=== PATIENT | female | born 1955 | race Caucasian/White ===

== ENCOUNTER → 2017-11-14 | Outpatient (CLI) | payer OTHER ==
[2017-11-14 12:03] LABS: APPEARANCE, URINE HAZY (CLEAR); BACTERIA, URINE AUTO NEGATIVE (NEGATIVE); BILIRUBIN, URINE AUTO NEGATIVE (NEGATIVE); BLOOD, URINE BLOOD NEGATIVE (NEGATIVE); COLOR, URINE YELLOW (YELLOW); GLUCOSE, URINE (UA) AUTO NEGATIVE (NEGATIVE); KETONE, URINE AUTO NEGATIVE (NEGATIVE); LEUKOCYTE ESTERASE, URINE AUTO TRACE (NEGATIVE); MUCUS, URINE SMALL (NEGATIVE); NITRITE, URINE AUTO NEGATIVE (NEGATIVE); PROTEIN, URINE AUTO NEGATIVE (NEGATIVE); RBC, URINE AUTO 2 /HPF (0-3); SPECIFIC GRAVITY URINE AUTO 1.015 (1.002-1.035); SQUAMOUS EPITHELIAL CELL UR AU 3 /HPF (0-6); UROBILINOGEN, URINE AUTO 0.2 mg/dL (0.0-2.0); WBC, URINE AUTO 4 /HPF (0-3)
[2017-11-14 12:05] LABS: HEMATOCRIT 40.3 % (36.0-47.0); HEMOGLOBIN 13.3 g/dl (12.0-16.0); MEAN CORPUSCULAR HEMOGLOBIN 28.1 pg (27.0-33.0); MEAN CORPUSCULAR VOLUME 85.2 fl (80.0-96.0); PLATELET COUNT, AUTOMATED 289 10^3/uL (150-450); RED BLOOD COUNT 4.73 10^6/uL (4.00-5.40); RED CELL DISTRIBUTION WIDTH 12.7 % (11.5-14.5); WHITE BLOOD COUNT 5.3 10^3/uL (4.0-10.0)
[2017-11-14 12:15] LABS: INR 1.05; PROTHROMBIN TIME 13.8 SECONDS (12.4-14.5)
[2017-11-14 12:38] LABS: ALBUMIN 4.1 GM/DL (3.2-5.2); ALBUMIN/GLOBULIN RATIO 1.03 (1.00-1.93); ALKALINE PHOSPHATASE 88 U/L (45-117); ALT/SGPT 19 U/L (12-78); ANION GAP 6 MEQ/L (8-16); AST/SGOT 15 U/L (7-37); BILIRUBIN,TOTAL 0.5 MG/DL (0.2-1.0); BLOOD UREA NITROGEN 18 MG/DL (7-18); CALCIUM LEVEL 9.7 MG/DL (8.8-10.2); CARBON DIOXIDE LEVEL 29 MEQ/L (21-32); CHLORIDE LEVEL 103 MEQ/L (98-107); CREATININE FOR GFR 0.79 MG/DL (0.55-1.02); GLOMERULAR FILTRATION RATE > 60.0 (>45); GLUCOSE, FASTING 94 MG/DL (80-110); SODIUM LEVEL 138 MEQ/L (136-145); TOTAL PROTEIN 8.1 GM/DL (6.4-8.2)
[2017-11-14 12:46] LABS: ERYTHROCYTE SEDIMENTATION RATE 14 mm/hr (0-30)
== END ==
LOC: M ADMPAT 10:22
DX: M17.11 Unilateral primary osteoarthritis, right knee (principal)
CPT/HCPCS: 71046

== ENCOUNTER 2017-12-29 07:17 | Inpatient (IN) | payer OTHER ==
[2017-12-29] MEDS: ACETAMINOPHEN 500 MG TAB PO (08:46)
[2017-12-29] MEDS: LR 1,000 ML IV ×4 (08:46→23:46)
[2017-12-29] MEDS ORDERED: fentaNYL 100 MCG/2 ML INJECTION (J3010) As Ordered ×2 (09:42→09:56)
[2017-12-29] MEDS ORDERED: MIDAZOLAM INJ 2 MG/2 ML VIAL (J2250) As Ordered ×2 (09:43→09:56)
[2017-12-29] MEDS: MIDAZOLAM INJ 2 MG/2 ML VIAL (J2250) IV (09:54)
[2017-12-29] MEDS: fentaNYL 100 MCG/2 ML INJECTION (J3010) IV (09:54)
[2017-12-29] MEDS: BUPIVACAINE HCL 0.25% 10 ML VIAL As Ordered (09:54)
[2017-12-29] MEDS ORDERED: LIDOCAINE 2% INJ 100 MG/5 ML SDV (FOR ANES.) As Ordered (09:57)
[2017-12-29] MEDS ORDERED: PROPOFOL 200 MG/20 ML VIAL As Ordered (09:57)
[2017-12-29] MEDS ORDERED: ePHEDrine INJ 50 MG/ML VIAL As Ordered (10:55)
[2017-12-29] MEDS: BUPIVACAINE LIPOSOME/PF 1.3% 20 ML VIAL (13.3MG/ML)(EXPAREL) As Ordered (11:05)
[2017-12-29] MEDS: ceFAZolin 1GM INJ (J0690 PER 500MG) As Ordered (11:05)
[2017-12-29] MEDS: EPINEPHrine INJ 1 MG/ML 1ML AMP As Ordered (11:06)
[2017-12-29] MEDS: TRANEXAMIC ACID 100 MG/ML 10ML VIAL As Ordered (11:06)
[2017-12-29] MEDS ORDERED: dexameTHASONE 10 MG/1 ML VIAL PRES.FREE (J1100) (11:40)
[2017-12-29] MEDS ORDERED: ROPIvacaine 0.5% 30 ML INJECTION (J2795 PER 1MG) (11:40)
[2017-12-29] MEDS ORDERED: MORPHINE 1MG/ML IN 0.9% NACL 100ML IV BAG As Ordered (12:10)
[2017-12-29] MEDS ORDERED: ONDANSETRON 4MG/2ML VIAL (J2405) As Ordered (12:27)
[2017-12-29] MEDS: ONDANSETRON 4MG/2ML VIAL (J2405) IV (12:30)
[2017-12-29] MEDS ORDERED: FLEET ENEMA PR (12:45)
[2017-12-29] MEDS ORDERED: EPIDURAL/PCA KEYS XX (13:00)
[2017-12-29] MEDS ORDERED: MORPHINE 1MG/ML IN 0.9% NACL 100ML IV BAG IV (13:00)
[2017-12-29] MEDS ORDERED: NALBUPHINE HCL 10 MG/ML AMP (J2300) IV (13:00)
[2017-12-29] MEDS ORDERED: ONDANSETRON 4MG/2ML VIAL (J2405) IV (13:00)
[2017-12-29] MEDS ORDERED: fentaNYL 100 MCG/2 ML INJECTION (J3010) IV (13:00)
[2017-12-29] MEDS ORDERED: diphenhydrAMINE INJ 50MG/ML VIAL (J1200) IV (13:00)
[2017-12-29] MEDS ORDERED: NALOXONE INJ 0.4 MG/1 ML VIAL (J2310) IV (13:00)
[2017-12-29] MEDS: LISINOPRIL 40 MG TAB PO (14:47)
[2017-12-29] MEDS: WARFARIN SOD 5 MG TAB PO (17:12)
[2017-12-30 07:00] LABS: HEMATOCRIT 34.9 % (36.0-47.0); HEMOGLOBIN 11.2 g/dl (12.0-16.0); MEAN CORPUSCULAR HEMOGLOBIN 28.1 pg (27.0-33.0); MEAN CORPUSCULAR HGB CONC 32.1 g/dl (32.0-36.5); MEAN CORPUSCULAR VOLUME 87.7 fl (80.0-96.0); PLATELET COUNT, AUTOMATED 274 10^3/uL (150-450); RED BLOOD COUNT 3.98 10^6/uL (4.00-5.40); RED CELL DISTRIBUTION WIDTH 13.1 % (11.5-14.5); WHITE BLOOD COUNT 11.2 10^3/uL (4.0-10.0)
[2017-12-30] MEDS ORDERED: ONDANSETRON 4 MG TAB (S0181) PO (07:00)
[2017-12-30 07:14] LABS: INR 1.16
[2017-12-30 07:21] LABS: ANION GAP 7 MEQ/L (8-16); BLOOD UREA NITROGEN 27 MG/DL (7-18); CALCIUM LEVEL 8.9 MG/DL (8.8-10.2); CARBON DIOXIDE LEVEL 27 MEQ/L (21-32); CHLORIDE LEVEL 107 MEQ/L (98-107); CREATININE FOR GFR 1.04 MG/DL (0.55-1.30); GLUCOSE, FASTING 117 MG/DL (70-100); POTASSIUM SERUM 4.9 MEQ/L (3.5-5.1); SODIUM LEVEL 141 MEQ/L (136-145)
[2017-12-30] MEDS: LISINOPRIL 40 MG TAB PO (09:00)
[2017-12-30] MEDS: SENOKOT S TAB PO ×2 (09:10→19:59)
[2017-12-30] MEDS: MIRALAX *UNIT DOSE* 17GM PACKET PO (09:10)
[2017-12-30] MEDS: MOM 30ML SUSPENSION UDC PO ×2 (09:10→19:59)
[2017-12-30] MEDS: PERCOCET 5MG/325MG TAB PO ×2 (12:35→20:00)
[2017-12-30] MEDS: WARFARIN SOD 5 MG TAB PO (16:29)
[2017-12-30] MEDS: ACETAMINOPHEN TAB 650MG DOSE (2X325MG) PO (22:42)
[2017-12-31] MEDS: PERCOCET 5MG/325MG TAB PO ×4 (00:41→14:14)
[2017-12-31 07:09] LABS: HEMATOCRIT 32.4 % (36.0-47.0); HEMOGLOBIN 10.4 g/dl (12.0-16.0); MEAN CORPUSCULAR HGB CONC 32.1 g/dl (32.0-36.5); MEAN CORPUSCULAR VOLUME 87.1 fl (80.0-96.0); PLATELET COUNT, AUTOMATED 264 10^3/uL (150-450); RED BLOOD COUNT 3.72 10^6/uL (4.00-5.40); RED CELL DISTRIBUTION WIDTH 13.2 % (11.5-14.5); WHITE BLOOD COUNT 10.6 10^3/uL (4.0-10.0)
[2017-12-31 07:22] LABS: INR 1.75
[2017-12-31 07:25] LABS: ANION GAP 4 MEQ/L (8-16); BLOOD UREA NITROGEN 30 MG/DL (7-18); CALCIUM LEVEL 8.5 MG/DL (8.8-10.2); CARBON DIOXIDE LEVEL 29 MEQ/L (21-32); CHLORIDE LEVEL 105 MEQ/L (98-107); CREATININE FOR GFR 0.74 MG/DL (0.55-1.30); GLOMERULAR FILTRATION RATE > 60.0 (>45); GLUCOSE, FASTING 112 MG/DL (70-100); POTASSIUM SERUM 4.5 MEQ/L (3.5-5.1); SODIUM LEVEL 138 MEQ/L (136-145)
[2017-12-31] MEDS: LISINOPRIL 40 MG TAB PO (09:08)
[2017-12-31] MEDS: MOM 30ML SUSPENSION UDC PO (09:08)
[2017-12-31] MEDS: MIRALAX *UNIT DOSE* 17GM PACKET PO (09:08)
[2017-12-31] MEDS: SENOKOT S TAB PO (09:08)
== END 2017-12-31 14:15 | disposition home health service (06) | DRG 302 ==
LOC: M OR 07:17 → M MS5PR 13:20
PROC: 0SRC0J9 Replacement of Right Knee Joint with Synthetic Substitute, Cemented, Open Approach (ICD-10-PCS; principal; 2017-12-29 10:00)
DX: M17.11 Unilateral primary osteoarthritis, right knee (principal); Z68.41 Body mass index [BMI] 40.0-44.9, adult; I10 Essential (primary) hypertension; E55.9 Vitamin D deficiency, unspecified; E66.9 Obesity, unspecified; F41.9 Anxiety disorder, unspecified; E78.5 Hyperlipidemia, unspecified; E16.2 Hypoglycemia, unspecified; I35.0 Nonrheumatic aortic (valve) stenosis

== ENCOUNTER → 2018-01-15 | Outpatient (REF) | payer OTHER ==
[2018-01-15 13:02] LABS: INR 1.46; PROTHROMBIN TIME 18.1 SECONDS (12.4-14.5)
== END ==
LOC: M LAB REF 12:44
DX: Z79.01 Long term (current) use of anticoagulants (principal)
CPT/HCPCS: 85610

== ENCOUNTER → 2018-04-08 | Day surgery (SDC) | payer OTHER ==
[~2018-04-08] MED LIST: LIDOCAINE 2% INJ 100 MG/5 ML SDV (FOR ANES.) As Ordered; NS 1,000 ML IV; PROPOFOL 200 MG/20 ML VIAL As Ordered
== END | disposition home or self-care (01) ==
LOC: M OPP 11:20
DX: Z12.11 Encounter for screening for malignant neoplasm of colon (principal); Z86.010 Personal history of colon polyps; I10 Essential (primary) hypertension; M17.0 Bilateral primary osteoarthritis of knee; F29 Unspecified psychosis not due to a substance or known physiological condition; F41.9 Anxiety disorder, unspecified; Z79.899 Other long term (current) drug therapy; Z78.0 Asymptomatic menopausal state; Z96.651 Presence of right artificial knee joint
CPT/HCPCS: 45378

== ENCOUNTER → 2018-12-22 | Outpatient (REF) | payer OTHER ==
[~2018-12-22] MED LIST changes: +CALC600T60 PO; +COUM2.5T17 PO; +FISH100049 PO; +FISH120012 PO; +HYDR-643 PO; -LIDOCAINE 2% INJ 100 MG/5 ML SDV (FOR ANES.) As Ordered; +LISI40TA PO; -NS 1,000 ML IV; +PERC5TAB12 PO; -PROPOFOL 200 MG/20 ML VIAL As Ordered; +TYLE325T5 PO; +VENL75TA2 PO; +VITA100067 PO; +[UNRECOGNIZED DRUG - CODE] PO
== END ==
LOC: M LAB REF 16:32
PROVIDERS: ATTEND Internal Medicine
DX: N76.0 Acute vaginitis (principal)

== ENCOUNTER → 2019-02-23 | Outpatient (CLI) | payer OTHER ==
[~2019-02-23] MED LIST changes: +ACET-897 PO; +D-101000 PO; +VITATAB26 PO
[2019-02-23 11:04] LABS: HEMATOCRIT 40.6 % (36.0-47.0); HEMOGLOBIN 13.1 g/dl (12.0-15.5); MEAN CORPUSCULAR HEMOGLOBIN 27.9 pg (27.0-33.0); MEAN CORPUSCULAR HGB CONC 32.3 g/dl (32.0-36.5); MEAN CORPUSCULAR VOLUME 86.4 fl (80.0-96.0); PLATELET COUNT, AUTOMATED 285 10^3/uL (150-450); WHITE BLOOD COUNT 5.1 10^3/uL (4.0-10.0)
[2019-02-23 11:18] LABS: INR 0.97
[2019-02-23 11:22] LABS: ALBUMIN 3.9 GM/DL (3.2-5.2); ALT/SGPT 20 U/L (12-78); BILIRUBIN,TOTAL 0.4 MG/DL (0.2-1.0); BLOOD UREA NITROGEN 21 MG/DL (7-18); CALCIUM LEVEL 9.2 MG/DL (8.8-10.2); CARBON DIOXIDE LEVEL 26 MEQ/L (21-32); CHLORIDE LEVEL 107 MEQ/L (98-107); CREATININE FOR GFR 0.83 MG/DL (0.55-1.30); GLOMERULAR FILTRATION RATE > 60.0 (>45); GLUCOSE, FASTING 94 MG/DL (70-100); POTASSIUM SERUM 4.5 MEQ/L (3.5-5.1); SODIUM LEVEL 140 MEQ/L (136-145); TOTAL PROTEIN 7.6 GM/DL (6.4-8.2)
[2019-02-23 11:49] LABS: ERYTHROCYTE SEDIMENTATION RATE 15 mm/hr (0-30)
--- NOTE | 2019-02-23 12:33 | REP ---
Chest two views HISTORY: Preop Comparison: 11/14/2017 Linear densities are present in the lingula consistent with scarring. The right lung is clear. The heart is normal in size. Calcified lymph nodes are present in the mediastinum. The pulmonary vasculature is normal in appearance. The bony structure is intact. IMPRESSION: There are linear densities in the lingula consistent with scarring. Electronically Signed by Clyde Sanchez MD 02/23/2019 12:24 P
--- NOTE | 2019-02-25 15:41 | ECGEPIP ---
Stationary ECG Study [facility] Test Date: 2019-02-23 Pat Name: BENITA STRINGER Department: Room: - Gender: F [employer]: : [id number] Requested By: Lyubov Peres @ [facility] Order Number: [id number] Reading MD: Harrison Mackenzie Measurements Intervals [place] Rate: 69 P: 43 AR: 194 QRS: -22 QRSD: 95 T: 18 QT: 386 QTc: 414 Interpretive Statements SINUS RHYTHM LEFT AXIS DEVIATION LOW QRS VOLTAGE IN PRECORDIAL LEADS Poor R wave progression. No prior ECG available for comparison at the time of interpretation. Electronically Signed On 02-25-2019 15:41:00 EDT by Harrison Mackenzie
== END ==
LOC: M LAB 10:24
PROVIDERS: ATTEND Orthopaedic Surgery
DX: M17.12 Unilateral primary osteoarthritis, left knee (principal)

== ENCOUNTER 2019-03-24 12:09 | Inpatient (IN) | payer OTHER ==
--- NOTE | 2019-03-04 16:27 | CR ---
DATE OF CONSULTATION: 03/02/2019 This is a preoperative consultation for Dr. Lyubov Soriano for left total knee arthroplasty (TKA) scheduled 03/24/2019 at [facility] ([facility]). Dear Dr. Soriano: Thank you for asking me to see Ms. Honey Ledesma in consultation prior to her left TKA scheduled 03/24/2019. As you know, Ms. Ledesma is a 63-year-old female with a past medical history of hypertension, hyperlipidemia, osteoarthritis (OA), degenerative joint disease (DJD), obesity, depression, who reports that she has been in her usual state of health, denying any fevers or chills, chest pain, or shortness of breath. After having had several stressors, patient reports she has learned to deal with her stress better and has even stopped her Wellbutrin. She has lost 7 pounds trying to adhere to portion control. She is very pleased with her right TKA done in November of 2017 and is eager to have her left TKA done. Patient does have anxiety. She was previously on venlafaxine and Wellbutrin, is off both, and is just using hydroxyzine for sleep. Patient has history of sinus allergies. They are controlled at this point, and she is not using saline or Flonase. Patient has hypertension. Denies chest pain or palpitations. She does use lisinopril daily and is compliant. Patient has hyperglycemia. Denies polyuria, polyphagia, polydipsia. REVIEW OF SYSTEMS: Otherwise, negative. Denying fevers or chills, chest pain or shortness of breath, nausea, vomiting, change in bowels. PAST MEDICAL HISTORY: 1. Hypertension. 2. OA, DJD per lumbosacral (LS) x-ray December 2013. Normal autoimmune serologies, but advanced OA, DJD bilateral knees, status post right TKA November of 2017 with good results. 3. Menopausal 2002. 4. G2, P2/ (C) section. 5. Colonic polyps with dysplasia. Last colonoscopy 04/08/2018 normal, recommending repeat in 5 years. 6. Hyperlipidemia. Refuses statin. 7. Vitamin D deficiency. 8. Herpes zoster 2013. 9. Obesity. 10. Hyperglycemia. 11. Anxiety. 12. Dysthymia. 13. Systolic murmur with echocardiogram 11/13/2017 showing aortic valve sclerosis, mild hypertensive heart disease. MEDICATIONS: - amoxicillin before dental procedures - calcium plus D twice a day - Flonase seasonally - hydroxyzine 10 mg 1-3 at bedtime - lisinopril 40 mg daily - saline spray as needed - Tylenol as needed - vitamin D3, 1000 international units daily DRUG ALLERGIES: None. SOCIAL HISTORY: Never smoked. Denies alcohol, except rare consumption of wine. FAMILY HISTORY: Father of an unknown cancer in his 70s. Mother of heart disease in her 70s. A sister had cervical cancer and thyroid disease. PHYSICAL EXAMINATION: Obese female in no acute distress. Vital signs: Are weight 231 with a body mass index (BMI) of 44. Oxygen saturation is 94%, blood pressure 142/78 with a heart rate of 91. HEENT exam: Head is normocephalic. Pupils equal, reactive to light. Extraocular movements intact. Conjunctivae are not injected. Sclerae anicteric. Vision grossly normal. Tympanic membranes normal. Tongue is midline. Posterior pharynx without inflammation. Neck: Is supple. No thyromegaly, jugular venous distention (JVD), or carotid bruits. Respiratory: Clear to auscultation. Resonant to percussion. Cardiovascular: 2-3 out of 6 systolic murmur. Abdomen: Obese, soft, nontender. Gynecologic: Deferred. Breast exam: Deferred. Extremities: No cyanosis, clubbing, or edema. She does have some OA changes of the distal interphalangeal (DIP) joints. Dermatologic: Multiple moles, skin tags, hobson angiomas. Neurologic: Alert and oriented. Cranial nerves II-XII intact. LABORATORY DATA: Chest x-ray shows no acute disease, just some scarring. EKG shows normal sinus rhythm, axis of -22, poor R-wave progression, but no atrial or ventricular hypertrophy, no pathologic Q waves, and no significant change compared to EKG 10/28/2017. Echocardiogram 11/13/2017 shows mild left ventricular hypertrophy (LVH) with grade 1 diastolic dysfunction, aortic sclerosis, consistent with mild hypertensive heart disease. Blood work 02/23/2019: Normal PT/PTT, med profile, liver panel, CBC, sedimentation rate. IMPRESSION: Ms. Honey Ledesma is a 63-year-old female with cardiovascular risk factors positive for hypertension, hyperlipidemia, hyperglycemia, obesity, age, who has no signs or symptoms indicative of cardiovascular ischemia and is felt to be at low risk for cardiovascular complications, which can be further minimized by the followin. Hypertension. Take lisinopril as usual evening prior to surgery. 2. Hyperlipidemia. Continue diet, exercise. She has refused statins. 3. Hyperglycemia. Diet, exercise, carbohydrate restriction. 4. Dysthymia. She is off all pharmacologic therapy and feels she is doing well. Her Patient Health Questionnaire-9 (PHQ-9) is reviewed and negative. 5. Anxiety. Controlled with hydroxyzine nightly. Consider using this perioperatively. She will take it the evening prior to surgery. 6. Osteoarthritis. She is not presently on any nonsteroidal anti-inflammatory drug (NSAID). She used Tylenol as needed. 7. Vitamin D deficiency. She will hold all vitamins morning of surgery. 8. Sinus allergies. Have improved. Should get both Flonase and saline initiated to keep her sinus allergies at bay prior to her surgical intervention. Thank you very much for this consultation. Please call with questions or concerns.
--- NOTE | 2019-03-16 15:33 | HPE ---
DATE OF PLANNED ADMISSION: 03/24/2019 ATTENDING PHYSICIAN: Dr. Ja Soriano CHIEF COMPLAINT: Left knee pain and stiffness. HISTORY: This is a pleasant 63-year-old female patient with progressively worsening left knee pain and stiffness that has failed to improve with conservative management. She has elected for left total knee arthroplasty by Dr. Soriano for her continued symptoms. ALLERGIES: None. CURRENT MEDICATIONS - Calcium with vitamin D - Flonase - hydroxyzine 10 mg one to three tablets by mouth (p.o.) at bedtime - lisinopril 40 mg daily - Tylenol as needed (p.r.n.) - vitamin D3 1000 units daily PAST MEDICAL HISTORY Hypertension, osteoarthritis, degenerative disk disease in the lumbar spine, hyperlipidemia, vitamin D deficiency, hyperglycemia, anxiety, dysthymia, systolic murmur with aortic valve sclerosis. PAST SURGICAL HISTORY section, right knee total arthroplasty. FAMILY HISTORY Father hypertension, heart disease. Mother hypertension. SOCIAL HISTORY Patient is a nonsmoker. Denies alcohol use. REVIEW OF SYSTEMS Denies fever, chills, chest pain, shortness breath, nausea, vomiting, diarrhea, recent upper respiratory or urinary tract infections. She does report pain with weightbearing in the left knee. PHYSICAL EXAMINATION Height 60 inches, weight 229 pounds, temperature 97.4, blood pressure 128/74, pulse 78, respirations 10. She is normocephalic, atraumatic, in no apparent distress. Neck is supple and nontender with no lymphadenopathy or JVD. S1, S2 are auscultated with regular rate and rhythm. Chest was clear to auscultation bilaterally with no wheezes, rales, rhonchi. Abdomen: Soft, nontender. The left lower extremity shows intact overlying skin, is well perfused. She has some tenderness over the medial aspect and intact range of motion with some pain at the extremes of range. EKG shows normal sinus rhythm, poor R-wave progression. No significant change compared to EKG on 10/28/2017. Echocardiogram on 11/13/2017 shows mild left ventricular hypertrophy with grade 1 diastolic dysfunction, aortic sclerosis. Chest x-ray shows linear densities in the lingula consistent with scarring. This was compared to study from 11/14/2017 LABS: White count 5.1, red count 4.7, hemoglobin 13.1, hematocrit 40.6, ESR 15, BUN 21, creatinine 0.83, PT 13, INR 0.97. PREOPERATIVE MEDICAL OPTIMIZATION: By Dr. Valentin was reviewed today on chart. IMPRESSION Symptomatic degenerative left knee osteoarthritis. PLAN Consented for left knee total arthroplasty with Dr. Soriano.
[~2019-03-24] VITALS: Ht 152.4 cm; Wt 101.7 kg
[~2019-03-24 12:09] MED LIST changes: +ACETAMINOPHEN 500 MG TAB PO ONE; +LR 1,000 ML IV ONE
[2019-03-24] MEDS ORDERED: LIDOCAINE 2% INJ 100 MG/5 ML SDV (FOR ANES.) As Ordered ONE (12:11)
[2019-03-24] MEDS ORDERED: PROPOFOL 200 MG/20 ML VIAL As Ordered ONE ×3 (12:11→15:22)
[2019-03-24] MEDS ORDERED: fentaNYL 100 MCG/2 ML INJECTION (J3010) As Ordered ONE ×2 (12:11→12:56)
[2019-03-24] MEDS ORDERED: MIDAZOLAM INJ 2 MG/2 ML VIAL (J2250) As Ordered ONE ×2 (12:11→12:56)
[2019-03-24] MEDS: MIDAZOLAM INJ 2 MG/2 ML VIAL (J2250) IV PRN ×2 (13:17→13:21)
[2019-03-24] MEDS ORDERED: BUPIVACAINE/DEXTROSE 0.75% 2 ML AMP As Ordered ONE (13:18)
[2019-03-24] MEDS ORDERED: dexameTHASONE 4 MG/ML 1ML VIAL (J1100) As Ordered ONE (13:23)
[2019-03-24] MEDS ORDERED: ONDANSETRON 4MG/2ML VIAL (J2405) As Ordered ONE (13:23)
[2019-03-24] MEDS ORDERED: TRANEXAMIC ACID 100 MG/ML 10ML VIAL As Ordered ONE (13:27)
[2019-03-24] MEDS ORDERED: BUPIVACAINE HCL 0.25% 10 ML VIAL As Ordered ONE (13:27)
[2019-03-24] MEDS ORDERED: BUPIVACAINE LIPOSOME/PF 1.3% 20ML VIAL (13.3MG/ML)(EXPAREL)(C9290 PER1MG) As Ordered ONE (13:28)
[2019-03-24] MEDS ORDERED: ceFAZolin 1GM INJ (J0690 PER 500MG) As Ordered ONE (13:28)
[2019-03-24] MEDS ORDERED: EPINEPHrine INJ 1 MG/ML 1ML AMP As Ordered ONE (13:28)
[2019-03-24] MEDS ORDERED: MIDAZOLAM INJ 2 MG/2 ML VIAL (J2250) IV ONE (13:45)
[2019-03-24] MEDS ORDERED: fentaNYL 100 MCG/2 ML INJECTION (J3010) IV ONE (14:00)
[2019-03-24] MEDS ORDERED: fentaNYL 100 MCG/2 ML INJECTION (J3010) IV PRN ×2 (14:00→16:15)
[2019-03-24] MEDS ORDERED: ePHEDrine SULFATE 25 MG/5 ML(5MG/ML) SYRINGE As Ordered ONE ×2 (14:25→15:03)
[2019-03-24] MEDS ORDERED: PHENYLephrine HCL 500 MCG/5 ML (100MCG/ML) SYRINGE (J2370) As Ordered ONE ×2 (14:25→14:59)
[2019-03-24] MEDS ORDERED: dexameTHASONE 10 MG/1 ML VIAL PRES.FREE (J1100) ONE (14:55)
[2019-03-24] MEDS ORDERED: EPINEPHrine INJ 1 MG/ML 1ML AMP ONE (14:55)
[2019-03-24] MEDS ORDERED: ROPIvacaine 0.5% 30 ML INJECTION (J2795 PER 1MG) ONE (14:55)
[2019-03-24] MEDS ORDERED: FLEET ENEMA PR PRN (16:15)
[2019-03-24] MEDS ORDERED: MEPERIDINE INJ 25 MG/ML VIAL (J2175) IV PRN (16:15)
[2019-03-24] MEDS ORDERED: PERCOCET 5MG/325MG TAB PO PRN (16:15)
[2019-03-24] MEDS ORDERED: ACETAMINOPHEN TAB 650MG DOSE (2X325MG) PO PRN (16:15)
[2019-03-24] MEDS: LR 1,000 ML IV SCH (16:15)
[2019-03-24] MEDS ORDERED: LR 1,000 ML IV SCH (16:15)
[2019-03-24] MEDS ORDERED: METOCLOPRAMIDE INJ 10MG/2ML VIAL (J2765) IV PRN (16:15)
--- NOTE | 2019-03-24 16:25 | REP ---
AP LATERAL LEFT KNEE, TWO VIEWS: HISTORY: Postoperative. The patient is status post left total knee replacement. There is no acute fracture or dislocation. Subcutaneous air and surgical brianna are present in the overlying soft tissue. IMPRESSION: The patient is status post left total knee replacement. There is anatomic alignment. Electronically Signed by Clyde Sanchez MD 03/24/2019 04:34 P
[2019-03-24] MEDS ORDERED: HYDROMORPHONE HCL 0.5 MG/ 0.5 ML SYRINGE (J1170 PER 1) IV PRN ×2 (16:30)
[2019-03-24] MEDS: ONDANSETRON 4MG/2ML VIAL (J2405) IV PRN (16:32)
--- NOTE | 2019-03-24 16:54 | RO ---
DATE OF PROCEDURE: 03/24/2019 PREPROCEDURE DIAGNOSIS: Left knee degenerative arthritis. POSTPROCEDURE DIAGNOSIS: Left knee degenerative arthritis. OPERATIVE PROCEDURE: Left total knee arthroplasty using a size 4 femoral component, cruciate retaining Attune knee with a size 4 tibial tray and a 7 mm rotating platform polyethylene insert and a 35 mm polyethylene button. All components were cemented. Prosthesis made by [employer]. SURGEON: Lyubov Soriano MD SHANK ARCHER: Tamara Shea ANESTHESIA: Left femoral nerve block with a spinal. ESTIMATED BLOOD LOSS: 20 mL SPECIMENS: Joint surface. COMPLICATIONS: None. TOURNIQUET TIME: 60 minutes. DESCRIPTION OF PROCEDURE: Antibiotics were given intravenously preoperatively and a successful left femoral nerve block and then a spinal anesthetic was induced. Tourniquet was placed in the left upper thigh and not inflated. The left lower extremity was carefully prepped and draped in the usual sterile fashion, elevated and after an appropriate time out, the tourniquet was inflated. A longitudinal incision was made for a medial parapatellar approach to the knee. Bovie cautery was used to coagulate the crossing vessels. Subperiosteal dissection of the proximal, medial and lateral tibia plateaus performed and then we everted the patella and flexed the knee, and debrided the anterior cruciate ligament (ACL). Placed a drill down the center of the femoral canal for the intramedullary fito with a distal femoral cutting jig set at 5 degrees valgus cut for a left knee at 9 mm resection level. The block was pinned into position and then the distal femoral cut performed. AP sizing jig measured for a size 4 femoral component. 3 degrees of external rotation was dialed in, the pins were placed and the four-in-one block applied and the anterior-posterior chamfer cuts performed. We then exposed the proximal tibia, used the extramedullary alignment jig, estimated being parallel to the mechanical axis of the tibia referencing off the medial tibial condyle and set it at 4 mm. Block was pinned into position, secondary check with extramedullary fito confirmed that we appeared to be parallel to the mechanical axis. Proximal tibial osteotomy thus performed. Laminar candle molder placed laterally and we performed a completion medial meniscectomy with debridement of the posteromedial osteophytes. Placed laminar candle molder medially and performed a completion lateral meniscectomy. Debrided posterolateral osteophytes. Spacer block fit best at 7 mm with good symmetry in flexion, extension, varus, valgus stress testing. We then exposed the proximal tibia, sized for a #4 tibial tray, which was then pinned into position followed by the reamer and broach. Then the trial was placed and the femoral component was placed. We did place the femoral jig for the notchplasty initially. We then brought the knee to extension, everted the patella, performed a patellar osteotomy, drilled the lug holes after sizing for a 35 mm button. The trial was placed and patellofemoral tracking was anatomic. We drilled the lug holes for the femur then removed all the trial components. Copiously pulsatile lavage irrigated out the knee joint and then injected Exparel in the subperiosteal tissues of the distal femur and the proximal tibia, and then as Tamara Shea mixed the cement on the back table as I prepared the bony surfaces for cementing with a copious amount of pulsatile lavage irrigant solution. Ms Tamara Shea was also critical to the success of this difficult surgery by helping to manipulate the knee, help with appropriate soft tissue retraction in this obese leg and helped with mixing the cement, closing the wound amongst many other tasks to allow me to perform the operation smoothly, efficiently and safely. We then dried all the exposed bone and cemented the tibial tray, removing excess cement, then placed the polyethylene and then cemented the femoral component, removing excess cement, brought the knee into extension, cemented the patellar button, held it with a clamp with the knee in extension until the cement hardened. Copiously pulsatile lavage irrigated out the knee joint as we were waiting for the cement to harden. I made sure that the small amount of cement that came out of the femoral hole was removed to prevent extension block. We then placed tranexamic acid in the knee, closed the arthrotomy at the apex with two #1 PDS sutures, the medial parapatellar areas was closed with #1 PDS suture, then a running double-armed #1 Stratafix used to close the capsule and then the tourniquet was released. Then we irrigated again and closed the deep subdermal tissues with interrupted #2-0 PDS sutures and the skin was closed with brianna, covered by an Optifoam dry sterile bulky dressing. She was then transferred to the recovery room in stable condition. There were no intraoperative complications.
[2019-03-24 17:20] VITALS: BP 129/67
--- NOTE | 2019-03-24 17:55 | CR.PDOC ---
General Date of Consultation: March 24, 2019 Consultation REASON FOR CONSULTATION/CHIEF COMPLAINT: Management of Medical comorbidities HISTORY OF PRESENT ILLNESS: This 63-year-old female patient with progressively worsening left knee pain and stiffness that has failed to improve with conservative management admitted for elective left total knee arthroplasty by Dr. Soriano for advanced osteoarthritis. hospitalist service has been consulted for management of her medical comorbidities. ALLERGIES: Please see below. HOME MEDICATIONS: Please see below. PAST MEDICAL HISTORY: 1. Hypertension 2. OA, DJD per lumbosacral (LS) x-ray December 2013. Normal autoimmune serologies, but advanced OA, DJD bilateral knees, status post right TKA November of 2017 with good results. 3. Colonic polyps with dysplasia. 4. Hyperlipidemia. Refuses statin. 5. Vitamin D deficiency. 6. Herpes zoster 2013. 9. Obesity. 7. Hyperglycemia. 8. Anxiety. 9. Dysthymia. 10. Systolic murmur with echocardiogram 11/13/2017 showing aortic valve sclerosis, mild hypertensive heart disease. PAST SURGICAL HISTORY: 1. Right Total Knee arthroplasty 2. Cesarian section FAMILY HISTORY: Never smoked. Denies alcohol, except rare consumption of wine. FAMILY HISTORY: Father of an unknown cancer in his 70s. Mother of heart disease in her 70s. A sister had cervical cancer and thyroid disease. SOCIAL HISTORY: Never smoked. Denies alcohol, except rare consumption of wine. REVIEW OF SYSTEMS: CONSTITUTIONAL: No fever or chills CARDIOVASCULAR: No chest pain or palpitation or orthopnea or PND or sob RESPIRATORY: No cough or phlegm or SOB GASTROINTESTINAL: No nausea vomiting or diarrhea SKIN: No rashes. NEUROLOGICAL: No weakness, seizure or confusion HEMATOLOGIC/LYMPHATIC: No excessive bleeding. PHYSICAL EXAMINATION: VITAL SIGNS: Please see below. GENERAL APPEARANCE: Awake alert cooperative, lying in bed in no acute distress HEENT: Normocephalic atraumatic anicteric eyes moist mucous membranes RESPIRATORY: Clear to auscultation CARDIOVASCULAR: s1 s2 regualr, no rub, murmur or gallop. ABDOMEN: Soft nontender normal bowel sounds EXTREMITIES: No edema LABORATORY DATA: Please see below. ASSESSMENT/PLAN: This 63-year-old female patient with progressively worsening left knee pain and stiffness that has failed to improve with conservative management admitted for elective left total knee arthroplasty by Dr. Soriano for advanced osteoarthritis. S/p Left Total knee arthroplasty elective procedure no issues during surgery pain control and dvt prophylaxis as per ortho Hypertension will hold lisinopril for now if needed will give amlodipine tonight. Morbid Obesity complicating care. Dysthymia and anxiety not on any medications now. DVT prophylaxis: Xarelto Vital Signs/I&O Vital Signs Date Time Temp Pulse Resp B/P (MAP) Pulse Ox O2 Delivery O2 Flow Rate FiO2 03/24/19 15:51 98.1 77 16 95/48 (91) 94 2 Allergies Coded Allergies: No Known Allergies (Unverified , 04/02/18) Home Medications Scheduled Acetaminophen (Tylenol Extra Strength) 500 Mg Tablet, 1,000 MG PO QHS, (Reported) Calcium Carbonate (Calcium) 600 Mg Tab, 600 MG PO DAILY, (Reported) with minerals Cholecalciferol (Vitamin D3) (Vitamin D3) 1,000 Unit Capsule, 1,000 UNIT PO DAILY, (Reported) Hydroxyzine HCl (Hydroxyzine HCl) 10 Mg Tab, 10 MG PO QHS, (Reported) Lisinopril (Lisinopril) 40 Mg Tab, 40 MG PO QHS, (Reported) HAYLEE NIX MD March 24, 2019 16:20
[2019-03-24 18:00] VITALS: BP_SYST 132; BP_SYST 142; BP_DIAS 71; BP_DIAS 81
[2019-03-24 20:00] VITALS: BP 149/77
[2019-03-24 20:20] VITALS: BP 156/88
[2019-03-24 21:00] VITALS: BP 137/69
[2019-03-24] MEDS ORDERED: amLODIPine 10 MG TAB PO SCH (21:00)
[2019-03-24 22:00] VITALS: BP 141/73
[2019-03-25 02:00] VITALS: BP 131/75
[2019-03-25] MEDS: LR 1,000 ML IV SCH (04:14)
[2019-03-25 06:00] VITALS: BP 159/80
[2019-03-25] MEDS ORDERED: PERCOCET 5MG/325MG TAB PO PRN ×2 (06:15)
[2019-03-25 06:27] LABS: HEMATOCRIT 33.9 % (36.0-47.0); MEAN CORPUSCULAR HEMOGLOBIN 27.8 pg (27.0-33.0); MEAN CORPUSCULAR HGB CONC 32.4 g/dl (32.0-36.5); MEAN CORPUSCULAR VOLUME 85.6 fl (80.0-96.0); PLATELET COUNT, AUTOMATED 258 10^3/uL (150-450); RED BLOOD COUNT 3.96 10^6/uL (4.00-5.40); WHITE BLOOD COUNT 12.9 10^3/uL (4.0-10.0)
[2019-03-25 06:52] LABS: BLOOD UREA NITROGEN 19 MG/DL (7-18); CALCIUM LEVEL 8.5 MG/DL (8.8-10.2); CARBON DIOXIDE LEVEL 25 MEQ/L (21-32); CHLORIDE LEVEL 108 MEQ/L (98-107); CREATININE FOR GFR 0.86 MG/DL (0.55-1.30); GLOMERULAR FILTRATION RATE > 60.0 (>45); GLUCOSE, FASTING 138 MG/DL (70-100); POTASSIUM SERUM 4.5 MEQ/L (3.5-5.1); SODIUM LEVEL 139 MEQ/L (136-145)
[2019-03-25] MEDS ORDERED: XARE10TA PO (07:07)
[2019-03-25] MEDS ORDERED: PERC5TAB12 PO (07:07)
--- NOTE | 2019-03-25 07:49 | IPNPDOC ---
Text Note Date of Service The patient was seen on 03/25/19. NOTE Subjective: No complaints this morning. Had a good night , has been out of bed. planned for dc today by orthopedics. PHYSICAL EXAMINATION: VITAL SIGNS: Please see below. GENERAL APPEARANCE: Awake alert cooperative, lying in bed in no acute distress HEENT: Normocephalic atraumatic anicteric eyes moist mucous membranes RESPIRATORY: Clear to auscultation CARDIOVASCULAR: s1 s2 regular, no rub, murmur or gallop. ABDOMEN: Soft nontender normal bowel sounds EXTREMITIES: No edema LABORATORY DATA: Please see below. ASSESSMENT/PLAN: This 63-year-old female patient with progressively worsening left knee pain and stiffness that has failed to improve with conservative management admitted for elective left total knee arthroplasty by Dr. Soriano for advanced osteoarthritis. S/p Left Total knee arthroplasty for advanced osteoarthritis elective procedure no issues during surgery pain control and dvt prophylaxis as per ortho Hypertension continue lisinopril Morbid Obesity complicating care. Dysthymia and anxiety not on any medications now. DVT prophylaxis: Xarelto VS,Fishbone, I+O VS, Fishbone, I+O Laboratory Tests 03/25/19 05:40 Red Blood Count 3.96 L, Mean Corpuscular Volume 85.6, Mean Corpuscular Hemoglobin 27.8, Mean Corpuscular Hemoglobin Concent 32.4, Red Cell Distribution Width 13.0, Calcium Level 8.5 L Vital Signs Date Time Temp Pulse Resp B/P (MAP) Pulse Ox O2 Delivery O2 Flow Rate FiO2 03/25/19 06:00 97.1 86 19 159/80 (106) 95 03/24/19 18:00 2.0 I&O- Last 24 Hours up to 6 AM 03/25/19 06:00 Intake Total 3310 ml Output Total 975 ml Balance 2335 ml HAYLEE NIX MD March 25, 2019 07:49
[2019-03-25] MEDS ORDERED: MOM 30ML SUSPENSION UDC PO SCH (09:00)
[2019-03-25] MEDS ORDERED: MIRALAX *UNIT DOSE* 17GM PACKET PO SCH (09:00)
[2019-03-25 10:00] VITALS: BP 162/75
[2019-03-25] MEDS ORDERED: RIVAROXABAN 10 MG TAB (XARELTO) PO SCH (18:00)
--- NOTE | 2019-03-26 14:43 | DSES ---
DATE OF ADMISSION: 03/24/2019 DATE OF DISCHARGE: 03/25/2019 DISCHARGE DIAGNOSIS: Left knee arthritis status post left total knee arthroplasty. HISTORY: This is a 63-year-old female with progressively worsening left knee pain and stiffness. She had failed to improve with conservative treatment. She elected for surgery for her continued symptoms. PROCEDURE PERFORMED: Left total knee arthroplasty. HOSPITAL COURSE: The patient was admitted on the day of surgery and underwent left total knee arthroplasty and it was without complications. Her hospital course was without complications. She was up with physical therapy per their protocol. Her pain was controlled. Upon discharge, the patient was doing well. She was weightbearing as tolerated to her left lower extremity, using her walker. She is going to resume preoperative medications and diet. She is going to use oral medications for pain control. She will use Xarelto for 2 weeks and BRYAN stockings for 30 days postoperatively for deep vein thrombosis (DVT) prophylaxis. Additionally, she will followup in the office in 2 weeks for wound check and staple removal. Please refer to the medical record for further detail.
== END 2019-03-25 12:00 | disposition home or self-care (01) | DRG 302 ==
LOC: M OR 12:09 → M MS5PR 17:00
PROVIDERS: ADMIT Orthopaedic Surgery; ATTEND Orthopaedic Surgery
PROC: 0SRD0J9 Replacement of Left Knee Joint with Synthetic Substitute, Cemented, Open Approach (ICD-10-PCS; principal; 2019-03-24 13:45)
DX: M17.12 Unilateral primary osteoarthritis, left knee (principal); Z68.41 Body mass index [BMI] 40.0-44.9, adult; I10 Essential (primary) hypertension; E66.01 Morbid (severe) obesity due to excess calories; Z79.899 Other long term (current) drug therapy; E78.5 Hyperlipidemia, unspecified; E55.9 Vitamin D deficiency, unspecified; F41.9 Anxiety disorder, unspecified; I35.0 Nonrheumatic aortic (valve) stenosis; Z96.651 Presence of right artificial knee joint

== ENCOUNTER → 2022-12-10 | Outpatient (CLI) | payer MEDICARE, OTHER, SELFPAY ==
[~2022-12-10] MED LIST changes: -ACETAMINOPHEN 500 MG TAB PO ONE; -LISI40TA PO; +LISI40TA4 PO; -LR 1,000 ML IV ONE; +XARE10TA PO
== END ==
LOC: M WHC 09:04
PROVIDERS: ATTEND Internal Medicine
DX: Z12.31 Encounter for screening mammogram for malignant neoplasm of breast (principal); Z13.820 Encounter for screening for osteoporosis; M85.851 Other specified disorders of bone density and structure, right thigh; M81.0 Age-related osteoporosis without current pathological fracture

== ENCOUNTER 2023-07-21 09:03 | Day surgery (SDC) | payer MEDICARE ==
[~2023-07-21] VITALS: Ht 152.4 cm; Wt 104.3 kg
[~2023-07-21 09:03] MED LIST changes: +AMLO5CAP53 PO; +NS 1,000 ML IV ONE; +THERTAB52 PO; +VITA100093 PO
[2023-07-21] MEDS ORDERED: propofoL 200 MG/20 ML VIAL As Ordered ONE ×2 (11:23→11:30)
[2023-07-21 11:41] VITALS: TEMP 97.9
[2023-07-21 11:57] VITALS: BP 129/68; O2SAT 100
== END 2023-07-21 12:12 | disposition home or self-care (01) ==
LOC: M OPP 09:03
PROVIDERS: ATTEND Internal Medicine Gastroenterology
DX: K57.30 Diverticulosis of large intestine without perforation or abscess without bleeding (principal); K64.0 First degree hemorrhoids; Z86.010 Personal history of colon polyps

== ENCOUNTER → 2025-01-28 | Outpatient (CLI) | payer MEDICARE ==
[~2025-01-28] MED LIST changes: -NS 1,000 ML IV ONE
== END ==
LOC: M WHC 08:09
PROVIDERS: ATTEND Internal Medicine
DX: Z12.31 Encounter for screening mammogram for malignant neoplasm of breast (principal); R92.313 Mammographic fatty tissue density, bilateral breasts; M85.89 Other specified disorders of bone density and structure, multiple sites